=== PATIENT | male | born 1990 | race Two or more races ===

== ENCOUNTER 2024-04-29 15:15 | Emergency (ER) | payer SELFPAY ==
[2024-04-29 15:23] VITALS: BP 112/73; PULSE 63; RESP 16; TEMP 97.7; BMI 24.4
[2024-04-29] MEDS ORDERED: BACITRACIN ZINC 15 GM TUBE TOPICAL OINTMENT ONE (16:55)
[2024-04-29] MEDS ORDERED: DIPHTH,PERTUSS(ACELL),TET 0.5 ML DISP.SYRIN IM ONE (16:55)
[2024-04-29] MEDS: DIPHTH,PERTUSS(ACELL),TET 0.5 ML DISP.SYRIN IM ONE (16:59)
[2024-04-29] MEDS: BACITRACIN ZINC 15 GM TUBE TOPICAL OINTMENT TP ONE (17:02)
== END 2024-04-29 17:02 | disposition home or self-care (01) ==
LOC: JERFT 15:15
PROC: 3E0234Z Introduction of Serum, Toxoid and Vaccine into Muscle, Percutaneous Approach (ICD-10-PCS; principal; 2024-04-29)
DX: S00.01XA Abrasion of scalp, initial encounter (principal); R42 Dizziness and giddiness; R55 Syncope and collapse; W22.8XXA Striking against or struck by other objects, initial encounter; Z23 Encounter for immunization
CPT/HCPCS: 90715; 99283-25